=== PATIENT | male | born 1960 | race Caucasian/White ===

== ENCOUNTER 2019-07-10 10:04 | Outpatient (CLI) | END 2019-07-10 10:05 | disposition home or self-care (01) | LOC: RHC-LAB 10:04 → FCC-LAB 10:05 | PROVIDERS: ATTEND Family Medicine | DX: Z00.00 Encounter for general adult medical examination without abnormal findings (principal); Z12.5 Encounter for screening for malignant neoplasm of prostate | CPT/HCPCS: 36415; 80053; 80061; 85025 ==